=== PATIENT | female | born 1985 | race Caucasian/White ===

== ENCOUNTER → 2019-05-05 | Outpatient (REF) | payer MEDICAID | LOC: M LAB LCGH 12:12 | PROVIDERS: ATTEND Obstetrics & Gynecology | DX: Z12.4 Encounter for screening for malignant neoplasm of cervix (principal) ==

== ENCOUNTER → 2022-05-15 | Outpatient (CLI) | payer OTHER | LOC: M RAD 12:37 | PROVIDERS: ATTEND Physician Assistant | DX: J32.8 Other chronic sinusitis (principal) ==